=== PATIENT | male | born 1970 | race Two or more races ===

== ENCOUNTER 2021-03-08 10:28 | Emergency (ER) | payer OTHER ==
[~2021-03-08] VITALS: Ht 182.9 cm; Wt 83.9 kg
[~2021-03-08 10:28] MED LIST: ALLEGRA60 M1
[2021-03-08] MEDS ORDERED: MEDROLPACK PO (16:06)
[2021-03-08] MEDS ORDERED: TUSNEL LIQUID178 ML PO (16:06)
[2021-03-08] MEDS ORDERED: DOLOGEN 325-11 EACH PO (16:06)
== END 2021-03-08 16:20 | disposition home or self-care (01) ==
LOC: ER 10:28
DX: U07.1 COVID-19 (principal)